=== PATIENT | male | born 1970 | race Caucasian/White ===

== ENCOUNTER 2016-11-14 05:00 | Emergency (ER) | payer SELFPAY ==
[~2016-11-14] VITALS: Ht 177.8 cm; Wt 77.1 kg
[2016-11-14 07:20] VITALS: BP 142/98
== END 2016-11-14 07:30 | disposition home or self-care (01) ==
LOC: ER 05:00
DX: S83.8X2A Sprain of other specified parts of left knee, initial encounter (principal); W19.XXXA Unspecified fall, initial encounter; Y93.89 Activity, other specified; Y99.8 Other external cause status; Y92.89 Other specified places as the place of occurrence of the external cause
CPT/HCPCS: 73562

== ENCOUNTER 2016-11-25 15:15 | Emergency (ER) | payer SELFPAY ==
[~2016-11-25] VITALS: Ht 177.8 cm; Wt 90.7 kg
[2016-11-25 17:40] VITALS: BP 134/92
== END 2016-11-25 19:06 | disposition home or self-care (01) ==
LOC: EDBD 15:15 → ER 15:23
DX: M25.562 Pain in left knee (principal); R07.89 Other chest pain; R42 Dizziness and giddiness
CPT/HCPCS: 73562; 93005